=== PATIENT | male | born 1970 | race Caucasian/White ===

== ENCOUNTER 2016-09-02 11:23 | Emergency (ER) | payer BC, OTHER ==
[2016-09-02 11:31] VITALS: O2SAT 97
--- NOTE | 2016-09-02 12:17 | EDPHY ---
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 He was able to control the bleeding with a dressing. He denies numbness or weakness. No other injury. He is right-hand dominant. REVIEW OF SYSTEMS: No recent fever, headache, cold or cough, shortness of breath, vomiting, diarrhea, or abdominal pain. - Personal History Current Tetanus/Diphtheria Vaccine: No Current Tetanus Diphtheria and Acellular Pertussis (TDAP): No Tetanus Vaccine Date: allergic - Medical/Surgical History Hx Asthma: No Hx Chronic Respiratory Disease: No Hx Diabetes: No Hx Cardiac Disease: No Hx Renal Disease: No Hx Cirrhosis: No Hx Alcoholism: No Hx HIV/AIDS: No Hx Splenectomy or Spleen Trauma: No Other PMH: APPY, ING HERNIA REPAIR,HIGH CHOLESTEROL - Social History Smoking Status: Never smoked Additional Social History: He is . He works for [employer]. - Physical Exam Exam: General Appearance: Alert. Vital signs reviewed. A focused physical exam was performed. Respiratory: Lungs are clear to auscultation; no wheezes, rales, or rhonchi. Cardiovascular: Regular rate and rhythm; no murmur, rub, or gallop. Skin: Warm and dry, no rashes on exposed skin, normal color. Extremities: There is a "U-shaped" laceration on the right ring finger located between MIP in the DIP on the medial aspect. No active bleeding at the time of my evaluation. Sensation is intact to light touch over the digits of the right hand. Full flexion and extension at all joints on the right ring finger. Neurological: Alert and oriented. Moving all four extremities easily and equally. Pulses: Brisk capillary refill right hand. Psychiatric: Normal affect. Constitutional: Initial Vital Signs Temperature (C) 36.5 C 09/02/16 11:29 Heart Rate 62 09/02/16 11:29 Blood Pressure 117/84 H 09/02/16 11:29 O2 Sat (%) 97 09/02/16 11:29 O2 Delivery Mode Room Air Allergies/Adverse Reactions: tetanus and diphtheria toxoids [tetanus & diphtheria toxoids] Allergy (Verified 09/02/16 11:27) ED Images - Extremities Hands Back Left/Right: 1 - ignore these images Medical Decision Making Procedures: Procedure: Laceration repair. Verbal consent was obtained from the patient. The 2 cm laceration on the right ring finger was anesthetized in the usual fashion (digital block with 1% lidocaine without epinephrine). The wound was irrigated. There were no deep structures involved. No tendon injury was identified. The wound was repaired with Dermabond skin glue . The wound repair was simple. The procedure was performed by myself. Please ignore image--it is erroneously marked. ED Course/Re-evaluation: The patient is tetanus has not been updated in over 10 years. He states that the last time he received a tetanus update he subsequently developed throat tightness and difficulty breathing. He did not seek medical help in this resolved over a matter of hours. He regards this as an allergic reaction, similar to an allergic reaction he had to another medication. He has not had tetanus since. We discussed the advisability of administering tetanus in this situation. It is not clear whether not his reaction years ago was an allergic reaction, however, it seems that he could be a risk for anaphylaxis with tetanus injection. He understands that tetanus can be a deadly illness. He was advanced stating that he is allergic to tetanus. He would like to forego tetanus today. 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 He understands that he has 72 hours in which to do so. The wound is clean. Differential Diagnosis: I considered a differential diagnosis that includes but is not limited to laceration, nerve injury, vascular injury, tendon injury, retained foreign body. Departure - Departure Disposition: Home, Routine, Self-Care Clinical Impression: Finger laceration Qualifiers: Encounter type: initial encounter Finger: ring finger Damage to nail status: without damage Foreign body presence: without foreign body Laterality: right Qualified Code(s): S61.214A - Laceration without foreign body of right ring finger without damage to nail, initial encounter Condition: Good Instructions: Finger Laceration (ED), Skin Adhesive Care (ED) Referrals: PCPND,UNKNOWN [Other] - As per Instructions Shabnam Youngblood MD [Medical Doctor] - As per Instructions
[2016-09-02] MEDS ORDERED: SKIN ADHESIVE (DERMABOND) 1 EACH TP ONE (12:22)
[2016-09-02 13:11] VITALS: BP 122/65; PULSE 85; RESP 18; TEMP 98
== END 2016-09-02 13:08 | disposition home or self-care (01) ==
LOC: CED 11:23
PROC: 0HQFXZZ Repair Right Hand Skin, External Approach (ICD-10-PCS; principal; 2016-09-02)
DX: S61.214A Laceration without foreign body of right ring finger without damage to nail, initial encounter (principal); W27.2XXA Contact with scissors, initial encounter; Y92.007 Garden or yard of unspecified non-institutional (private) residence as the place of occurrence of the external cause